=== PATIENT | male | born 1980 | race Caucasian/White ===

== ENCOUNTER 2024-05-12 19:41 | Emergency (ER) | payer BC, MEDICAID ==
[~2024-05-12] VITALS: Ht 188 cm; Wt 85.0 kg
[2024-05-12 19:44] VITALS: BP 116/67; PULSE 90; RESP 16; TEMP 37.2; O2SAT 96
[2024-05-12] MEDS ORDERED: KEPP500 MT (19:53)
[2024-05-12] MEDS: LEVETIRACETAM 500MG PREMIX 100 ML IV ONE (23:03)
== END 2024-05-12 23:06 | disposition home or self-care (01) ==
LOC: ER 19:41
DX: R56.9 Unspecified convulsions (principal)
CPT/HCPCS: 99283